=== PATIENT | male | born 1960 | race Caucasian/White ===

== ENCOUNTER 2024-08-20 08:58 | Outpatient (CLI) | payer MEDICARE, SELFPAY ==
[2024-08-20 10:06] LABS: Basophils # 0.1 K/mm3 (0-0.2); Eosinophils # 0.1 K/mm3 (0.0-0.4); Hematocrit 46.4 % (42.0-52.0); Hemoglobin 15.5 g/dL (14.1-18.0); Lymphocytes # 2.6 K/mm3 (0.7-4.5); Mean Corpuscular HGB Conc 33.3 g/dL (31.8-35.4); Mean Corpuscular Hemoglobin 30.6 pg (27.0-31.2); Mean Corpuscular Volume 91.9 fl (80-94); Mean Platelet Volume 8.1 fl (7.4-10.4); Monocytes # 0.7 K/mm3 (0.1-1.0); Monocytes % 5.6 % (1.7-9.3); Neutrophils # 9.3 K/mm3 (1.8-7.8); Neutrophils % 72.5 % (37.0-80.0); Platelet Count 341 K/mm3 (142-424); Red Blood Count 5.05 M/mm3 (4.60-6.20); White Blood Count 12.9 K/mm3 (4.8-10.8)
[2024-08-20 10:42] LABS: Alanine Aminotransferase 22 U/L (12-78); Albumin Level 4.5 g/dl (3.5-5.0); Albumin/Globulin Ratio 1.7 (1.1-1.8); Alkaline Phosphatase 73 U/L (38-126); Amylase 108 U/L (30-110); Anion Gap 13.9 mEq/L (5-15); Aspartate Amino Transferase 30 U/L (17-59); Bilirubin,Total 0.7 mg/dl (0.2-1.3); Blood Urea Nitrogen 8 mg/dl (9-20); Calcium 9.5 mg/dl (8.4-10.2); Carbon Dioxide 21 mmol/L (22.0-30.0); Chloride 109 mmol/L (98-107); Estimated Glomerular Filt Rate 97 ml/min (>60); GFR (African American) 118 ML/MIN (>60); Globulin 2.6 g/dL (1.3-3.2); Glucose 97 mg/dl (74-100); Lipase 586 U/L (23-300); Potassium 3.9 mmoL/L (3.5-5.1); Sodium 140 mmol/L (136-145); Total Protein,Serum 7.1 g/dl (6.3-8.2)
[2024-08-21 10:16] LABS: CA 19-9 5 U/mL (0-35)
== END 2024-08-20 23:59 | disposition home or self-care (01) ==
LOC: LAB 09:00
PROVIDERS: Visit Provider Internal Medicine Gastroenterology
DX: K74.69 Other cirrhosis of liver (principal); B19.20 Unspecified viral hepatitis C without hepatic coma; K86.1 Other chronic pancreatitis
CPT/HCPCS: 36415; 80053; 82150; 83690; 85025; 86301

== ENCOUNTER 2025-01-15 09:58 | Outpatient (CLI) | payer MEDICARE, SELFPAY ==
--- NOTE | 2025-01-15 09:59 | CT_ITS ---
FINAL REPORT TECHNIQUE: Axial CT of the abdomen and pelvis, without and with IV contrast. Coronal and sagittal images were obtained and reviewed. This study was performed with techniques to keep radiation doses as low as reasonably achievable, (ALARA). Individualized dose reduction techniques using automated exposure control or adjustment of mA and/or kV according to the patient''s size were employed. CLINICAL HISTORY: pancreatitis COMPARISON: None FINDINGS: Abdomen: Precontrast imaging demonstrates no evidence of renal stone disease. There is no pancreatic mass or changes of pancreatitis. No pancreatic or biliary ductal dilatation is seen. The solid organs are unremarkable. There is cholelithiasis. There is no adenopathy or fluid collection. 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 Pelvic bowel loops are unremarkable. There is a small right inguinal hernia with a tiny portion of bladder entering the hernia. No pelvic mass seen. IMPRESSION: No evidence of pancreatitis or pancreatic mass. Uncomplicated cholelithiasis. 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 Right inguinal hernia containing a tiny portion of the bladder. Reviewed, Interpreted and Dictated by Danielle Gibson MD Transcribed by Modesta Najera Authenticated and [facility]
[2025-01-15 10:31] LABS: Blood Urea Nitrogen 8 mg/dl (9-20); Estimated Glomerular Filt Rate 97 ml/min (>60); GFR (African American) 118 ML/MIN (>60)
[2025-01-15] MEDS: SODIUM CHLORIDE 0.9% 10ML SYR (RAD ONLY) 10 ML IV (11:11)
[2025-01-15] MEDS: IOPAMIDOL-370 (76%);100ML BOTTLE 75 ML IV (11:11)
== END 2025-01-15 23:59 | disposition home or self-care (01) ==
PROVIDERS: PCP Internal Medicine; Visit Provider Internal Medicine Gastroenterology
DX: K86.1 Other chronic pancreatitis (principal); R10.12 Left upper quadrant pain; R10.11 Right upper quadrant pain
CPT/HCPCS: 36415; 74178; 82565; 84520; Q9967